=== PATIENT | female | born 1955 | race African-American/Black ===

== ENCOUNTER 2020-02-01 14:38 | Inpatient (IN) ==
[2020-02-01 15:59] LABS: Basophils # 0.1 K/mcL (0.0-0.2); Basophils % 0.5 %; Eosinophils # 0.6 K/mcL (0.0-0.6); Eosinophils % 6.1 %; Hematocrit 34.9 % (35.3-44.9); Hemoglobin 11.4 g/dL (11.5-15.4); Immature Granulocytes % 0.2 % (0-4); Lymphocytes # 5.6 K/mcL (0.6-4.6); Lymphocytes % 56.4 %; Mean Corpuscular HGB Conc 32.7 g/dL (31.6-35.5); Mean Corpuscular Hemoglobin 30.6 pg (28.0-33.3); Mean Corpuscular Volume 93.8 fL (83.0-100.0); Mean Platelet Volume 9.1 fL (9.4-12.4); Monocytes # 0.6 K/mcL (0.0-1.3); Monocytes % 5.9 %; Neutrophils # 3.1 K/mcL (1.6-8.9); Platelet Count 493 K/mcL (140-400); Red Blood Count 3.72 M/mcL (3.82-4.97); Red Cell Distribution Width 13.2 % (11.5-14.5); Segmented Neutrophils % 30.9 %; White Blood Count 9.9 K/mcL (4.3-11.1)
[2020-02-01 16:01] LABS: Prothrombin Time 11.5 Seconds (9.4-12.1)
[2020-02-01 16:04] LABS: Activated Partial Thrombo Time 27.9 Seconds (26.0-36.0)
[2020-02-01 16:09] LABS: Alanine Aminotransferase 16 Units/L (7-52); Albumin/Globulin Ratio 1.3 (1.1-2.2); Alkaline Phosphatase 52 Units/L (34-104); Aspartate Amino Transferase 21 Units/L (13-39); BUN/Creatinine Ratio 19 (6-26); Bilirubin,Indirect 0.5 mg/dL (0.0-1.0); Bilirubin,Total 0.5 mg/dL (0.3-1.0); Blood Urea Nitrogen 13 mg/dL (8-23); Calcium 9.2 mg/dL (8.6-10.3); Carbon Dioxide 23 mEq/L (23-29); Chloride 107 mEq/L (98-107); Globulin 3.2 g/dL (2.4-3.5); Glucose 134 mg/dL (70-105); Osmolality,Calculated 290 (280-300); Potassium 3.7 mEq/L (3.5-5.1); Sodium 139 mEq/L (136-145); Total Protein 7.2 g/dL (6.4-8.9); Troponin I < 0.03 ng/mL (< 0.04); eGFR For African Americans > 60 (> 60); eGFR For Non-African Americans > 60 (> 60)
[2020-02-01 16:29] LABS: Platelet Estimate Normal (Normal); Reactive Lymphocytes Present (Not Present)
[2020-02-01 17:37] LABS: Adenovirus Not Detected (Not Detect); Bordetella Pertussis Not Detected (Not Detect); Chlamydophila pneumoniae Not Detected (Not Detect); Coronavirus 229E Not Detected (Not Detect); Coronavirus HKU1 Not Detected (Not Detect); Coronavirus NL63 Not Detected (Not Detect); Coronavirus OC43 Not Detected (Not Detect); Human Metapneumovirus Not Detected (Not Detect); Human Rhinovirus/Enterovirus Not Detected (Not Detect); Influenza A Subtype 2009 H1 Not Detected (Not Detect); Influenza B Not Detected (Not Detect); Mycoplasma pneumoniae Not Detected (Not Detect); Parainfluenza Virus 1 Not Detected (Not Detect); Parainfluenza Virus 2 Not Detected (Not Detect); Parainfluenza Virus 3 Not Detected (Not Detect); Parainfluenza Virus 4 Not Detected (Not Detect); Respiratory Syncytial Virus Not Detected (Not Detect); SARS-CoV-2 Not Detected (Not Detect)
[2020-02-01] MEDS ORDERED: Naloxone 0.4 MG/ML INJ IVP PRN (21:50)
[2020-02-01] MEDS ORDERED: Ondansetron 4 MG/2 ML VIAL IVP PRN (21:50)
[2020-02-01] MEDS: *HR* Heparin 5,000 UNIT/ML VIAL SQ SCH (22:24)
[2020-02-02] MEDS: *HR* Heparin 5,000 UNIT/ML VIAL SQ SCH ×3 (05:40→21:07)
[2020-02-02] MEDS: Aspirin Enteric Coated 81 MG Tablet PO SCH (08:11)
[2020-02-02 10:47] LABS: Prothrombin Time 11.3 Seconds (9.4-12.1)
[2020-02-02 10:50] LABS: BUN/Creatinine Ratio 18 (6-26); Blood Urea Nitrogen 13 mg/dL (8-23); Calcium 9.3 mg/dL (8.6-10.3); Carbon Dioxide 22 mEq/L (23-29); Chloride 107 mEq/L (98-107); Glucose 85 mg/dL (70-105); Osmolality,Calculated 287 (280-300); Potassium 4.1 mEq/L (3.5-5.1); Sodium 139 mEq/L (136-145); eGFR For African Americans > 60 (> 60); eGFR For Non-African Americans > 60 (> 60)
[2020-02-02 10:52] LABS: % Iron Saturation 18 % (15-50); Iron 66 mcg/dL (50-170); Transferrin 263 mg/dL (203-362)
[2020-02-02] MEDS: Acetaminophen 325 MG TABLET PO PRN (10:59)
[2020-02-02 11:09] LABS: Ferritin 164 ng/mL (10-120)
[2020-02-02 11:31] LABS: Folate > 22.3 ng/mL (3.0-16.0); Vitamin B12 351 pg/mL (250-1100)
[2020-02-03] MEDS: *HR* Heparin 5,000 UNIT/ML VIAL SQ SCH ×3 (05:08→19:51)
[2020-02-03] MEDS: Aspirin Enteric Coated 81 MG Tablet PO SCH (08:39)
[2020-02-03] MEDS: amLODIPine 5 MG TABLET PO SCH (08:39)
[2020-02-03] MEDS: Acetaminophen 325 MG TABLET PO PRN (13:11)
[2020-02-04] MEDS: Acetaminophen 325 MG TABLET PO PRN ×3 (01:25→19:58)
[2020-02-04] MEDS: *HR* Heparin 5,000 UNIT/ML VIAL SQ SCH ×3 (03:43→19:55)
[2020-02-04 07:46] LABS: Hematocrit 37.4 % (35.3-44.9); Hemoglobin 12.2 g/dL (11.5-15.4); Mean Corpuscular HGB Conc 32.6 g/dL (31.6-35.5); Mean Corpuscular Hemoglobin 30.4 pg (28.0-33.3); Mean Corpuscular Volume 93.3 fL (83.0-100.0); Mean Platelet Volume 9.3 fL (9.4-12.4); Platelet Count 535 K/mcL (140-400); Red Blood Count 4.01 M/mcL (3.82-4.97); White Blood Count 9.4 K/mcL (4.3-11.1)
[2020-02-04 07:59] LABS: BUN/Creatinine Ratio 26 (6-26); Blood Urea Nitrogen 20 mg/dL (8-23); Calcium 9.6 mg/dL (8.6-10.3); Carbon Dioxide 22 mEq/L (23-29); Chloride 110 mEq/L (98-107); Glucose 99 mg/dL (70-105); Osmolality,Calculated 291 (280-300); Potassium 4.2 mEq/L (3.5-5.1); Sodium 139 mEq/L (136-145); eGFR For African Americans > 60 (> 60); eGFR For Non-African Americans > 60 (> 60)
[2020-02-04] MEDS: Aspirin Enteric Coated 81 MG Tablet PO SCH (08:02)
[2020-02-04] MEDS: amLODIPine 5 MG TABLET PO SCH (08:03)
[2020-02-04] MEDS ORDERED: *HR* Midazolam HCl 2 MG/2 ML VIAL ONE (08:17)
[2020-02-04] MEDS ORDERED: Heparin 1,000 UNITS/500 mL 500 ML ONE (08:17)
[2020-02-04] MEDS ORDERED: ISOVUE-370 200 ML INFUS..BTL ONE (08:17)
[2020-02-04] MEDS ORDERED: *HR* Heparin 10,000 UNIT/10 ML VIAL ONE (08:17)
[2020-02-04] MEDS ORDERED: 0.9 % Sodium Chloride 1,000 ML ONE ×2 (08:17→08:27)
[2020-02-04] MEDS ORDERED: Nitroglycerin 1,000 MCG/10 ML VIAL IV ONE (08:17)
[2020-02-04] MEDS ORDERED: *HR* Atropine Sulfate 1 MG/10 ML SYRINGE ONE (08:50)
[2020-02-04] MEDS: Isosorbide MONOnitrate (24 HR) 30 MG TAB.ER.24H PO SCH (11:53)
[2020-02-04 20:25] LABS: Estimated Average Glucose 105 mg/dl; Hemoglobin A1C 5.3 %
[2020-02-04 20:58] LABS: Chol/HDL Ratio 4.8 (0-4.9)
[2020-02-05] MEDS: *HR* Heparin 5,000 UNIT/ML VIAL SQ SCH ×3 (04:33→21:22)
[2020-02-05 05:38] LABS: BUN/Creatinine Ratio 24 (6-26); Blood Urea Nitrogen 19 mg/dL (8-23); Calcium 9.4 mg/dL (8.6-10.3); Carbon Dioxide 22 mEq/L (23-29); Chloride 107 mEq/L (98-107); Glucose 98 mg/dL (70-105); Osmolality,Calculated 286 (280-300); Sodium 137 mEq/L (136-145); eGFR For African Americans > 60 (> 60); eGFR For Non-African Americans > 60 (> 60)
[2020-02-05] MEDS: Isosorbide MONOnitrate (24 HR) 30 MG TAB.ER.24H PO SCH (08:57)
[2020-02-05] MEDS: Chlorhexidine Rinse 15 ML MOUTHWASH MM SCH ×2 (08:57→21:22)
[2020-02-05] MEDS: Aspirin Enteric Coated 81 MG Tablet PO SCH (08:57)
[2020-02-05] MEDS: amLODIPine 5 MG TABLET PO SCH (08:57)
[2020-02-05] MEDS: Acetaminophen 325 MG TABLET PO PRN ×2 (16:08→21:23)
[2020-02-06 03:11] LABS: Hematocrit 34.1 % (35.3-44.9); Hemoglobin 11.1 g/dL (11.5-15.4); Mean Corpuscular HGB Conc 32.6 g/dL (31.6-35.5); Mean Corpuscular Hemoglobin 30.2 pg (28.0-33.3); Mean Corpuscular Volume 92.9 fL (83.0-100.0); Platelet Count 474 K/mcL (140-400); Red Blood Count 3.67 M/mcL (3.82-4.97); Red Cell Distribution Width 13.2 % (11.5-14.5)
[2020-02-06 03:29] LABS: BUN/Creatinine Ratio 23 (6-26); Blood Urea Nitrogen 17 mg/dL (8-23); Calcium 9.3 mg/dL (8.6-10.3); Carbon Dioxide 24 mEq/L (23-29); Chloride 109 mEq/L (98-107); Glucose 95 mg/dL (70-105); Osmolality,Calculated 293 (280-300); Potassium 3.8 mEq/L (3.5-5.1); Sodium 141 mEq/L (136-145); eGFR For African Americans > 60 (> 60); eGFR For Non-African Americans > 60 (> 60)
[2020-02-06] MEDS: *HR* Heparin 5,000 UNIT/ML VIAL SQ SCH ×3 (05:54→22:02)
[2020-02-06] MEDS ORDERED: Aspirin 81 MG TAB.CHEW PO ONE (06:00)
[2020-02-06] MEDS ORDERED: *HR* Midazolam HCl 5 MG/5 ML VIAL IVP ONE (06:53)
[2020-02-06] MEDS ORDERED: *HR* FentaNYL (PF) 1,000 MCG/20 ML VIAL ONE (06:53)
[2020-02-06] MEDS ORDERED: *HR* Propofol 200 MG/20 ML VIAL IVP ONE (06:53)
[2020-02-06] MEDS ORDERED: Tranexamic Acid 1,000 MG/10 ML VIAL ONE (06:56)
[2020-02-06] MEDS ORDERED: Famotidine 20 MG/2 ML VIAL ONE (06:58)
[2020-02-06] MEDS ORDERED: *HR* Rocuronium Bromide 50 MG/5 ML VIAL ONE ×2 (06:58→09:07)
[2020-02-06] MEDS ORDERED: *HR* PHENYLEPHRINE 1,000 MCG/10 ML SYRINGE IVP ONE (06:58)
[2020-02-06] MEDS ORDERED: Dexamethasone 4 MG/ML VIAL ONE (06:58)
[2020-02-06] MEDS ORDERED: *HR* Magnesium Sulfate 1 GM/2 ML VIAL ONE (06:58)
[2020-02-06] MEDS ORDERED: Lidocaine 2% Syringe 100 MG/5 ML ONE (06:59)
[2020-02-06] MEDS ORDERED: CeFAZolin Syr 2,000MG/20 ML 2,000 MG/20 ML SYRINGE IVPB ONE (07:00)
[2020-02-06] MEDS ORDERED: Norepinephrine 4 MG in 0.9 % Sodium Chloride 250 ML IVC PRN (07:45)
[2020-02-06] MEDS ORDERED: Insulin Human Regular 100 UNIT in 0.9 % Sodium Chloride 100 ML IV PRN (07:45)
[2020-02-06] MEDS ORDERED: Dextrose 50 % in Water (Vial) 30 ML, Sodium Bicarbonate 20 MEQ, Lidocaine 1% 5 ML, Insu... TH ONE ×3 (07:45)
[2020-02-06] MEDS ORDERED: Heparin 15,000 UNIT in 0.9 % Sodium Chloride 500 ML IV ONE (07:45)
[2020-02-06] MEDS ORDERED: Dextrose 50 % in Water (Vial) 30 ML, Sodium Bicarbonate 20 MEQ, Potassium Chloride 15 M... TH ONE (07:45)
[2020-02-06] MEDS ORDERED: Vancomycin 1,000 MG VIAL ONE (08:08)
[2020-02-06 08:38] LABS: ABG Base Excess -2 mEq/L (-2 to 3); ABG Chloride 108 mEq/L (98-107); ABG Glucose 103 mg/dL (60-95); ABG HCO3 26 mEq/L (21-27); ABG Ionized Calcium 1.28 mmol/L (1.15-1.35); ABG Oxygen Saturation 100 % (95-98); ABG PCO2 55 mmHg (35-45); ABG PH 7.28 pH Units (7.32-7.45); ABG PO2 188 mmHg (85-104); ABG TCO2 27 mEq/L (20-26)
[2020-02-06] MEDS ORDERED: Papaverine 60 MG/2 ML VIAL IVP ONE (09:51)
[2020-02-06] MEDS ORDERED: niCARdipine 20 MG/200 ML MLS IVC ONE (10:05)
[2020-02-06] MEDS ORDERED: Albumin Human 5% 12.5 GM/250 ML IV.SOLN ONE ×2 (10:06→11:07)
[2020-02-06 10:24] LABS: ABG Base Excess -2 mEq/L (-2 to 3); ABG Chloride 103 mEq/L (98-107); ABG Glucose 145 mg/dL (60-95); ABG HCO3 23 mEq/L (21-27); ABG Ionized Calcium 1.05 mmol/L (1.15-1.35); ABG Oxygen Saturation 100 % (95-98); ABG PCO2 39 mmHg (35-45); ABG PH 7.38 pH Units (7.32-7.45); ABG PO2 478 mmHg (85-104); ABG TCO2 24 mEq/L (20-26)
[2020-02-06] MEDS ORDERED: Protamine Sulfate 250 MG/25 ML VIAL IVP ONE (10:47)
[2020-02-06] MEDS ORDERED: Calcium Gluconate 1,000 MG/10 ML VIAL ONE (10:47)
[2020-02-06 11:13] LABS: ABG Base Excess -2 mEq/L (-2 to 3); ABG Chloride 101 mEq/L (98-107); ABG Glucose 116 mg/dL (60-95); ABG HCO3 24 mEq/L (21-27); ABG Ionized Calcium 1.06 mmol/L (1.15-1.35); ABG Oxygen Saturation 100 % (95-98); ABG PCO2 43 mmHg (35-45); ABG PH 7.35 pH Units (7.32-7.45); ABG PO2 587 mmHg (85-104); ABG TCO2 25 mEq/L (20-26)
[2020-02-06 11:24] LABS: ABG Base Excess -2 mEq/L (-2 to 3); ABG Chloride 102 mEq/L (98-107); ABG Glucose 86 mg/dL (60-95); ABG HCO3 24 mEq/L (21-27); ABG Ionized Calcium 1.09 mmol/L (1.15-1.35); ABG Oxygen Saturation 100 % (95-98); ABG PCO2 46 mmHg (35-45); ABG PH 7.33 pH Units (7.32-7.45); ABG PO2 603 mmHg (85-104); ABG TCO2 26 mEq/L (20-26)
[2020-02-06 11:43] LABS: ABG Base Excess -4 mEq/L (-2 to 3); ABG Chloride 110 mEq/L (98-107); ABG Glucose 70 mg/dL (60-95); ABG HCO3 21 mEq/L (21-27); ABG Oxygen Saturation 100 % (95-98); ABG PCO2 32 mmHg (35-45); ABG PH 7.41 pH Units (7.32-7.45); ABG PO2 198 mmHg (85-104); ABG TCO2 22 mEq/L (20-26)
[2020-02-06] MEDS ORDERED: Ondansetron 4 MG/2 ML VIAL ONE (11:47)
[2020-02-06] MEDS ORDERED: *HR* Dextrose 50 % in Water (Vial) 50 ML VIAL IVP PRN (11:48)
[2020-02-06] MEDS ORDERED: Insulin Regular, Human 100 UNIT/ML IV PRN (11:48)
[2020-02-06] MEDS ORDERED: Potassium Chloride 40 MEQ/200 ML BAG IVPB PRN (11:48)
[2020-02-06] MEDS ORDERED: Albumin Human 5% 12.5 GM/250 ML IV.SOLN IVPB PRN (11:49)
[2020-02-06] MEDS ORDERED: Acetaminophen 650 MG RECTAL SUPP RC PRN (11:49)
[2020-02-06] MEDS ORDERED: Calcium Gluconate 1gm/50mL 1 GM/50 ML BAG IVPB PRN (11:49)
[2020-02-06 11:59] LABS: ABG Base Excess -2 mEq/L (-2 to 3); ABG Chloride 108 mEq/L (98-107); ABG Glucose 68 mg/dL (60-95); ABG HCO3 22 mEq/L (21-27); ABG Ionized Calcium 1.03 mmol/L (1.15-1.35); ABG Oxygen Saturation 100 % (95-98); ABG PCO2 34 mmHg (35-45); ABG PH 7.41 pH Units (7.32-7.45); ABG PO2 189 mmHg (85-104); ABG TCO2 23 mEq/L (20-26)
[2020-02-06] MEDS ORDERED: 0.9 % Sodium Chloride w KCl 20 MEQ/1,000 ML MLS IVC SCH (12:00)
[2020-02-06 12:37] LABS: ABG Base Excess -1 mEq/L (-2 to 3); ABG HCO3 23 mEq/L (21-27); ABG Oxygen Saturation 99 % (95-98); ABG PCO2 32 mmHg (35-45); ABG PH 7.46 pH Units (7.32-7.45); ABG PO2 148 mmHg (85-104); ABG TCO2 24 mEq/L (20-26); Blood Gas Modality ASSIST CONTROL; Blood Gas VT 500 cc
[2020-02-06] MEDS: amLODIPine 5 MG TABLET PO SCH (12:38)
[2020-02-06] MEDS: niCARdipine 20 MG/200 ML MLS IVC SCH ×3 (12:38→19:33)
[2020-02-06] MEDS: Metoclopramide 10 MG/2 ML VIAL IVP SCH ×3 (12:40→23:58)
[2020-02-06 12:46] LABS: Basophils # 0.1 K/mcL (0.0-0.2); Basophils % 0.3 %; Eosinophils # 0.2 K/mcL (0.0-0.6); Eosinophils % 0.9 %; Hematocrit 28.2 % (35.3-44.9); Immature Granulocytes % 0.9 % (0-4); Lymphocytes # 3.8 K/mcL (0.6-4.6); Lymphocytes % 19.4 %; Mean Corpuscular HGB Conc 33.7 g/dL (31.6-35.5); Mean Corpuscular Hemoglobin 30.2 pg (28.0-33.3); Mean Corpuscular Volume 89.5 fL (83.0-100.0); Monocytes % 4.9 %; Neutrophils # 14.5 K/mcL (1.6-8.9); Platelet Count 205 K/mcL (140-400); Red Blood Count 3.15 M/mcL (3.82-4.97); Red Cell Distribution Width 13.1 % (11.5-14.5); Segmented Neutrophils % 73.6 %
[2020-02-06 12:47] LABS: Hemoglobin 9.5 g/dL (11.5-15.4); White Blood Count 19.7 K/mcL (4.3-11.1)
[2020-02-06 12:56] LABS: INR 1.2; Prothrombin Time 14.2 Seconds (9.4-12.1)
[2020-02-06 12:59] LABS: Activated Partial Thrombo Time 26.7 Seconds (26.0-36.0)
[2020-02-06 13:01] LABS: BUN/Creatinine Ratio 19 (6-26); Blood Urea Nitrogen 15 mg/dL (8-23); Calcium 8.3 mg/dL (8.6-10.3); Carbon Dioxide 22 mEq/L (23-29); Chloride 110 mEq/L (98-107); Glucose 115 mg/dL (70-105); Magnesium 3.5 mg/dL (1.6-2.6); Osmolality,Calculated 290 (280-300); Potassium 4.5 mEq/L (3.5-5.1); Sodium 139 mEq/L (136-145); eGFR For African Americans > 60 (> 60); eGFR For Non-African Americans > 60 (> 60)
[2020-02-06] MEDS: Insulin Human Regular 100 UNIT in 0.9 % Sodium Chloride 100 ML IVC SCH (13:14)
[2020-02-06] MEDS: *HR* FentaNYL (PF) 100 MCG/2 ML VIAL IVP PRN ×3 (13:47→19:33)
[2020-02-06] MEDS: Pantoprazole 40 MG VIAL IVP SCH (13:51)
[2020-02-06] MEDS: Norepinephrine 4 MG/254 ML IV.SOLN IVC SCH (15:30)
[2020-02-06] MEDS: CeFAZolin 2 GM/120 ML BAG IVPB SCH ×2 (15:47→23:58)
[2020-02-06] MEDS: *HR* OxyCODONE/APAP 5/325 TABLET PO PRN (15:47)
[2020-02-06 16:57] LABS: ABG Base Excess -1 mEq/L (-2 to 3); ABG HCO3 27 mEq/L (21-27); ABG Oxygen Saturation 97 % (95-98); ABG PCO2 58 mmHg (35-45); ABG PH 7.28 pH Units (7.32-7.45); ABG PO2 102 mmHg (85-104); ABG TCO2 29 mEq/L (20-26); Blood Gas Modality CPAP/PS; Blood Gas Pressure Support 10 cm H2O
[2020-02-06 18:30] LABS: ABG Base Excess -1 mEq/L (-2 to 3); ABG HCO3 25 mEq/L (21-27); ABG Oxygen Saturation 98 % (95-98); ABG PCO2 49 mmHg (35-45); ABG PH 7.32 pH Units (7.32-7.45); ABG PO2 124 mmHg (85-104); ABG TCO2 27 mEq/L (20-26); Blood Gas Modality ASSIST CONTROL; Blood Gas VT 500 cc
[2020-02-06] MEDS: Chlorhexidine Rinse 15 ML MOUTHWASH MM SCH (19:33)
[2020-02-06 20:07] LABS: ABG Base Excess -2 mEq/L (-2 to 3); ABG HCO3 26 mEq/L (21-27); ABG Oxygen Saturation 97 % (95-98); ABG PCO2 64 mmHg (35-45); ABG PH 7.23 pH Units (7.32-7.45); ABG PO2 107 mmHg (85-104); ABG TCO2 28 mEq/L (20-26)
[2020-02-06 22:20] LABS: ABG Base Excess -3 mEq/L (-2 to 3); ABG HCO3 25 mEq/L (21-27); ABG Oxygen Saturation 92 % (95-98); ABG PCO2 58 mmHg (35-45); ABG PH 7.24 pH Units (7.32-7.45); ABG PO2 76 mmHg (85-104); ABG TCO2 26 mEq/L (20-26)
[2020-02-06 23:54] LABS: ABG Base Excess -3 mEq/L (-2 to 3); ABG HCO3 24 mEq/L (21-27); ABG Oxygen Saturation 96 % (95-98); ABG PCO2 48 mmHg (35-45); ABG PH 7.31 pH Units (7.32-7.45); ABG PO2 90 mmHg (85-104); ABG TCO2 25 mEq/L (20-26)
[2020-02-07] MEDS: niCARdipine 20 MG/200 ML MLS IVC SCH ×7 (00:13→23:11)
[2020-02-07] MEDS: *HR* OxyCODONE/APAP 5/325 TABLET PO PRN ×4 (01:04→18:39)
[2020-02-07] MEDS: *HR* Heparin 5,000 UNIT/ML VIAL SQ SCH ×3 (04:01→16:48)
[2020-02-07 04:08] LABS: Basophils % 0.1 %; Hematocrit 27.7 % (35.3-44.9); Hemoglobin 8.9 g/dL (11.5-15.4); Immature Granulocytes % 0.5 % (0-4); Lymphocytes # 2.7 K/mcL (0.6-4.6); Lymphocytes % 15.7 %; Mean Corpuscular HGB Conc 32.1 g/dL (31.6-35.5); Mean Corpuscular Hemoglobin 29.7 pg (28.0-33.3); Mean Corpuscular Volume 92.3 fL (83.0-100.0); Monocytes # 1.3 K/mcL (0.0-1.3); Monocytes % 7.7 %; Platelet Count 201 K/mcL (140-400); Red Cell Distribution Width 13.7 % (11.5-14.5); White Blood Count 17.1 K/mcL (4.3-11.1)
[2020-02-07 04:26] LABS: BUN/Creatinine Ratio 26 (6-26); Blood Urea Nitrogen 19 mg/dL (8-23); Calcium 7.5 mg/dL (8.6-10.3); Carbon Dioxide 21 mEq/L (23-29); Chloride 112 mEq/L (98-107); Glucose 147 mg/dL (70-105); Magnesium 2.5 mg/dL (1.6-2.6); Osmolality,Calculated 297 (280-300); Potassium 4.7 mEq/L (3.5-5.1); Sodium 141 mEq/L (136-145); eGFR For African Americans > 60 (> 60); eGFR For Non-African Americans > 60 (> 60)
[2020-02-07] MEDS: Metoclopramide 10 MG/2 ML VIAL IVP SCH ×4 (05:02→23:13)
[2020-02-07 05:19] LABS: ABG Base Excess -2 mEq/L (-2 to 3); ABG HCO3 24 mEq/L (21-27); ABG Oxygen Saturation 97 % (95-98); ABG PCO2 45 mmHg (35-45); ABG PH 7.34 pH Units (7.32-7.45); ABG PO2 100 mmHg (85-104); ABG TCO2 26 mEq/L (20-26)
[2020-02-07] MEDS ORDERED: *HR* Dextrose 50 % in Water (Vial) 50 ML VIAL IVP PRN (07:50)
[2020-02-07] MEDS ORDERED: Dextrose Gel 15 GM/37.5 ML TUBE PO PRN ×2 (07:50)
[2020-02-07] MEDS ORDERED: D5% in Water 1,000 ML IVC PRN (07:50)
[2020-02-07] MEDS: Furosemide 20 MG/2 ML VIAL IVP SCH ×2 (08:24→19:58)
[2020-02-07] MEDS: Pantoprazole 40 MG VIAL IVP SCH (08:24)
[2020-02-07] MEDS: Chlorhexidine Rinse 15 ML MOUTHWASH MM SCH ×2 (08:24→19:58)
[2020-02-07] MEDS: Aspirin Enteric Coated 81 MG Tablet PO SCH (08:24)
[2020-02-07] MEDS ORDERED: *HR* FentaNYL (PF) 100 MCG/2 ML VIAL IVP PRN (11:49)
[2020-02-07] MEDS: Insulin LISPRO 300 UNITS/3 ML VIAL SUBQ SCH ×2 (12:58→16:48)
[2020-02-07] MEDS: Norepinephrine 4 MG/254 ML IV.SOLN IVC SCH (12:59)
[2020-02-07] MEDS: Insulin Human Regular 100 UNIT in 0.9 % Sodium Chloride 100 ML IVC SCH (13:00)
[2020-02-07] MEDS ORDERED: Insulin LISPRO 300 UNITS/3 ML VIAL SUBQ SCH (21:00)
[2020-02-08] MEDS: *HR* OxyCODONE/APAP 5/325 TABLET PO PRN (00:52)
[2020-02-08 04:31] LABS: Basophils % 0.1 %; Eosinophils % 0.1 %; Hematocrit 25.4 % (35.3-44.9); Hemoglobin 8.2 g/dL (11.5-15.4); Immature Granulocytes % 0.3 % (0-4); Lymphocytes # 5.2 K/mcL (0.6-4.6); Lymphocytes % 28.4 %; Mean Corpuscular HGB Conc 32.3 g/dL (31.6-35.5); Mean Corpuscular Hemoglobin 30.7 pg (28.0-33.3); Mean Corpuscular Volume 95.1 fL (83.0-100.0); Mean Platelet Volume 9.4 fL (9.4-12.4); Monocytes # 1.4 K/mcL (0.0-1.3); Monocytes % 7.8 %; Neutrophils # 11.6 K/mcL (1.6-8.9); Platelet Count 214 K/mcL (140-400); Red Blood Count 2.67 M/mcL (3.82-4.97); Segmented Neutrophils % 63.3 %; White Blood Count 18.3 K/mcL (4.3-11.1)
[2020-02-08 04:47] LABS: BUN/Creatinine Ratio 35 (6-26); Blood Urea Nitrogen 24 mg/dL (8-23); Calcium 7.7 mg/dL (8.6-10.3); Carbon Dioxide 26 mEq/L (23-29); Chloride 108 mEq/L (98-107); Glucose 147 mg/dL (70-105); Osmolality,Calculated 295 (280-300); Potassium 4.4 mEq/L (3.5-5.1); Sodium 139 mEq/L (136-145); eGFR For African Americans > 60 (> 60); eGFR For Non-African Americans > 60 (> 60)
[2020-02-08] MEDS: niCARdipine 20 MG/200 ML MLS IVC SCH (06:10)
[2020-02-08] MEDS: *HR* Heparin 5,000 UNIT/ML VIAL SQ SCH ×2 (06:11→17:32)
[2020-02-08] MEDS: Metoclopramide 10 MG/2 ML VIAL IVP SCH ×3 (06:11→17:31)
[2020-02-08] MEDS: Insulin LISPRO 300 UNITS/3 ML VIAL SUBQ SCH ×4 (07:40→20:14)
[2020-02-08] MEDS: Furosemide 20 MG/2 ML VIAL IVP SCH ×2 (08:11→20:15)
[2020-02-08] MEDS: Aspirin Enteric Coated 81 MG Tablet PO SCH (08:11)
[2020-02-08] MEDS: Chlorhexidine Rinse 15 ML MOUTHWASH MM SCH ×2 (08:11→20:15)
[2020-02-08] MEDS ORDERED: amLODIPine 5 MG TABLET PO SCH (09:00)
[2020-02-08] MEDS: Acetaminophen 325 MG TABLET PO PRN (11:58)
[2020-02-08] MEDS ORDERED: Dextrose Gel 15 GM/37.5 ML TUBE PO PRN ×2 (14:22)
[2020-02-08] MEDS ORDERED: *HR* Dextrose 50 % in Water (Vial) 50 ML VIAL IVP PRN (14:22)
[2020-02-08] MEDS ORDERED: Naloxone 0.4 MG/ML INJ IVP PRN (14:22)
[2020-02-08] MEDS ORDERED: Ondansetron 4 MG/2 ML VIAL IVP PRN (14:22)
[2020-02-08] MEDS ORDERED: D5% in Water 1,000 ML IVC PRN (14:22)
[2020-02-09] MEDS: Metoclopramide 10 MG/2 ML VIAL IVP SCH ×3 (01:13→11:45)
[2020-02-09] MEDS: *HR* Heparin 5,000 UNIT/ML VIAL SQ SCH ×2 (05:57→16:44)
[2020-02-09] MEDS: Insulin LISPRO 300 UNITS/3 ML VIAL SUBQ SCH ×4 (07:35→20:36)
[2020-02-09] MEDS: Furosemide 20 MG/2 ML VIAL IVP SCH ×2 (08:03→20:35)
[2020-02-09] MEDS: amLODIPine 5 MG TABLET PO SCH (08:03)
[2020-02-09] MEDS: Chlorhexidine Rinse 15 ML MOUTHWASH MM SCH ×2 (08:03→20:35)
[2020-02-09] MEDS: Aspirin Enteric Coated 81 MG Tablet PO SCH (08:03)
[2020-02-09] MEDS: Acetaminophen 325 MG TABLET PO PRN (16:44)
[2020-02-10 05:01] LABS: Basophils % 0.2 %; Eosinophils # 0.1 K/mcL (0.0-0.6); Eosinophils % 0.6 %; Hematocrit 25.4 % (35.3-44.9); Hemoglobin 8.5 g/dL (11.5-15.4); Immature Granulocytes % 0.8 % (0-4); Lymphocytes # 4.9 K/mcL (0.6-4.6); Lymphocytes % 25.4 %; Mean Corpuscular HGB Conc 33.5 g/dL (31.6-35.5); Mean Corpuscular Hemoglobin 30.8 pg (28.0-33.3); Mean Platelet Volume 9.5 fL (9.4-12.4); Monocytes # 1.4 K/mcL (0.0-1.3); Monocytes % 7.3 %; Neutrophils # 12.7 K/mcL (1.6-8.9); Nucleated Red Blood Cells 0.2 /100 WBC (0); Platelet Count 432 K/mcL (140-400); Red Blood Count 2.76 M/mcL (3.82-4.97); Red Cell Distribution Width 13.6 % (11.5-14.5); Segmented Neutrophils % 65.7 %; White Blood Count 19.3 K/mcL (4.3-11.1)
[2020-02-10] MEDS: *HR* Heparin 5,000 UNIT/ML VIAL SQ SCH ×2 (06:17→17:50)
[2020-02-10] MEDS: Insulin LISPRO 300 UNITS/3 ML VIAL SUBQ SCH ×4 (09:09→20:31)
[2020-02-10] MEDS: amLODIPine 5 MG TABLET PO SCH (09:14)
[2020-02-10] MEDS: Aspirin Enteric Coated 81 MG Tablet PO SCH (09:14)
[2020-02-10] MEDS: Chlorhexidine Rinse 15 ML MOUTHWASH MM SCH ×2 (09:14→20:29)
[2020-02-10] MEDS: Acetaminophen 325 MG TABLET PO PRN (12:28)
[2020-02-10 20:10] LABS: Bilirubin,Urine Negative (Negative); Blood,Urine Trace (Negative); Clarity,Urine Clear (Clear); Color,Urine Yellow (Yellow); Glucose,Urine (UA) Normal (Normal); Ketones,Urine Negative (Negative); Leukocyte Esterase,Urine Negative (Negative); Mucus,Urine Few per lpf (None-Few); Nitrite,Urine Negative (Negative); Protein,Urine 50 mg/dL (Neg-Trace); RBC,Urine 0-3 per hpf (0-3); Specific Gravity,Urine 1.022 (1.010-1.025); Squamous Epithelial Cell,Urine Few per hpf (None-Few); Urobilinogen,Urine Normal (Normal); WBC,Urine 0-3 per hpf (0-3)
[2020-02-10] MEDS: *HR* OxyCODONE/APAP 5/325 TABLET PO PRN (22:26)
[2020-02-11 04:52] LABS: Basophils # 0.1 K/mcL (0.0-0.2); Basophils % 0.3 %; Eosinophils # 0.6 K/mcL (0.0-0.6); Hematocrit 26.8 % (35.3-44.9); Hemoglobin 8.4 g/dL (11.5-15.4); Immature Granulocytes % 1.1 % (0-4); Lymphocytes # 6.7 K/mcL (0.6-4.6); Lymphocytes % 35.6 %; Mean Corpuscular HGB Conc 31.3 g/dL (31.6-35.5); Mean Corpuscular Hemoglobin 29.2 pg (28.0-33.3); Mean Corpuscular Volume 93.1 fL (83.0-100.0); Mean Platelet Volume 9.3 fL (9.4-12.4); Monocytes # 1.5 K/mcL (0.0-1.3); Monocytes % 7.7 %; Neutrophils # 9.9 K/mcL (1.6-8.9); Nucleated Red Blood Cells 0.3 /100 WBC (0); Platelet Count 540 K/mcL (140-400); Red Blood Count 2.88 M/mcL (3.82-4.97); Red Cell Distribution Width 13.5 % (11.5-14.5); Segmented Neutrophils % 52.3 %; White Blood Count 18.9 K/mcL (4.3-11.1)
[2020-02-11 05:36] LABS: Platelet Estimate Increased (Normal); Reactive Lymphocytes Present (Not Present)
[2020-02-11] MEDS: *HR* OxyCODONE/APAP 5/325 TABLET PO PRN ×4 (06:36→23:36)
[2020-02-11] MEDS: *HR* Heparin 5,000 UNIT/ML VIAL SQ SCH ×2 (06:37→17:48)
[2020-02-11] MEDS: Insulin LISPRO 300 UNITS/3 ML VIAL SUBQ SCH ×4 (07:20→20:28)
[2020-02-11] MEDS: Aspirin Enteric Coated 81 MG Tablet PO SCH (07:32)
[2020-02-11] MEDS: amLODIPine 5 MG TABLET PO SCH (07:33)
[2020-02-11] MEDS: Chlorhexidine Rinse 15 ML MOUTHWASH MM SCH ×2 (07:34→20:40)
[2020-02-11] MEDS ORDERED: Vancomycin 1,500 MG/265 ML IV.SOLN IVPB ONE (12:55)
[2020-02-11] MEDS ORDERED: Vancomycin 1 EACH in 0.9 % Sodium Chloride 250 ML IVPB SCH (13:00)
[2020-02-11 13:40] LABS: eGFR For African Americans > 60 (> 60); eGFR For Non-African Americans > 60 (> 60)
[2020-02-11 14:19] LABS: Blood Urea Nitrogen 21 mg/dL (8-23)
[2020-02-11] MEDS: levoFLOXacin 750 MG/150 ML 750 MG/150 ML BAG IVPB SCH (15:42)
[2020-02-11] MEDS ORDERED: Piperacillin/Tazobactam 3.375 GM in 0.9 % Sodium Chloride Mini Bag 100 ML IVPB SCH (16:00)
[2020-02-11] MEDS: Ipratropium/Albuterol Neb 3 ML IH SCH ×2 (16:54→21:49)
[2020-02-11] MEDS ORDERED: Isovue-370 500 ML BOTTLE PO ONE (17:16)
[2020-02-11] MEDS: Acetaminophen 325 MG TABLET PO PRN (20:40)
[2020-02-11] MEDS: Piperacillin/Tazobactam 3.375 GM in 0.9 % Sodium Chloride Mini Bag 100 ML IVPB SCH (20:40)
[2020-02-12] MEDS: Vancomycin 1,250 MG/262.5 ML IV.SOLN IVPB SCH ×2 (00:57→13:50)
[2020-02-12 03:20] LABS: Basophils # 0.1 K/mcL (0.0-0.2); Basophils % 0.3 %; Eosinophils # 0.7 K/mcL (0.0-0.6); Eosinophils % 4.4 %; Hematocrit 22.8 % (35.3-44.9); Hemoglobin 7.3 g/dL (11.5-15.4); Immature Granulocytes % 1.5 % (0-4); Lymphocytes # 5.4 K/mcL (0.6-4.6); Lymphocytes % 35.6 %; Mean Corpuscular Hemoglobin 29.8 pg (28.0-33.3); Mean Corpuscular Volume 93.1 fL (83.0-100.0); Mean Platelet Volume 9.6 fL (9.4-12.4); Monocytes # 1.2 K/mcL (0.0-1.3); Neutrophils # 7.6 K/mcL (1.6-8.9); Nucleated Red Blood Cells 0.2 /100 WBC (0); Platelet Count 623 K/mcL (140-400); Red Blood Count 2.45 M/mcL (3.82-4.97); Red Cell Distribution Width 13.5 % (11.5-14.5); Segmented Neutrophils % 50.2 %; White Blood Count 15.1 K/mcL (4.3-11.1)
[2020-02-12 03:26] LABS: BUN/Creatinine Ratio 22 (6-26); Blood Urea Nitrogen 13 mg/dL (8-23); Calcium 8.4 mg/dL (8.6-10.3); Carbon Dioxide 22 mEq/L (23-29); Chloride 105 mEq/L (98-107); Glucose 101 mg/dL (70-105); Osmolality,Calculated 286 (280-300); Potassium 3.3 mEq/L (3.5-5.1); Sodium 138 mEq/L (136-145); eGFR For African Americans > 60 (> 60); eGFR For Non-African Americans > 60 (> 60)
[2020-02-12] MEDS: Piperacillin/Tazobactam 3.375 GM in 0.9 % Sodium Chloride Mini Bag 100 ML IVPB SCH ×3 (03:34→22:22)
[2020-02-12] MEDS: Ipratropium/Albuterol Neb 3 ML IH SCH ×4 (03:49→21:35)
[2020-02-12] MEDS: *HR* Heparin 5,000 UNIT/ML VIAL SQ SCH ×2 (05:49→17:23)
[2020-02-12] MEDS: Insulin LISPRO 300 UNITS/3 ML VIAL SUBQ SCH ×4 (08:43→22:23)
[2020-02-12] MEDS: amLODIPine 5 MG TABLET PO SCH (08:53)
[2020-02-12] MEDS: Aspirin Enteric Coated 81 MG Tablet PO SCH (08:53)
[2020-02-12] MEDS: levoFLOXacin 750 MG/150 ML 750 MG/150 ML BAG IVPB SCH (08:56)
[2020-02-12] MEDS: Chlorhexidine Rinse 15 ML MOUTHWASH MM SCH ×2 (08:57→22:23)
[2020-02-12] MEDS: Acetaminophen 325 MG TABLET PO PRN ×3 (09:02→23:45)
[2020-02-13] MEDS: Vancomycin 1,250 MG/262.5 ML IV.SOLN IVPB SCH ×2 (01:26→12:27)
[2020-02-13 03:28] LABS: Basophils # 0.1 K/mcL (0.0-0.2); Basophils % 0.5 %; Eosinophils # 0.9 K/mcL (0.0-0.6); Hematocrit 26.6 % (35.3-44.9); Immature Granulocytes % 2.1 % (0-4); Lymphocytes # 5.3 K/mcL (0.6-4.6); Lymphocytes % 30.6 %; Mean Corpuscular HGB Conc 30.1 g/dL (31.6-35.5); Mean Corpuscular Volume 96.4 fL (83.0-100.0); Mean Platelet Volume 9.3 fL (9.4-12.4); Monocytes # 1.6 K/mcL (0.0-1.3); Monocytes % 9.2 %; Nucleated Red Blood Cells 0.2 /100 WBC (0); Platelet Count 789 K/mcL (140-400); Red Blood Count 2.76 M/mcL (3.82-4.97); Red Cell Distribution Width 13.7 % (11.5-14.5); Segmented Neutrophils % 52.6 %; White Blood Count 17.2 K/mcL (4.3-11.1)
[2020-02-13 03:39] LABS: BUN/Creatinine Ratio 18 (6-26); Blood Urea Nitrogen 12 mg/dL (8-23); Calcium 8.9 mg/dL (8.6-10.3); Carbon Dioxide 19 mEq/L (23-29); Chloride 110 mEq/L (98-107); Glucose 94 mg/dL (70-105); Osmolality,Calculated 288 (280-300); Potassium 3.9 mEq/L (3.5-5.1); Sodium 139 mEq/L (136-145); eGFR For African Americans > 60 (> 60); eGFR For Non-African Americans > 60 (> 60)
[2020-02-13] MEDS: Ipratropium/Albuterol Neb 3 ML IH SCH ×3 (03:55→16:18)
[2020-02-13] MEDS: Piperacillin/Tazobactam 3.375 GM in 0.9 % Sodium Chloride Mini Bag 100 ML IVPB SCH ×2 (05:13→12:27)
[2020-02-13] MEDS: *HR* Heparin 5,000 UNIT/ML VIAL SQ SCH (05:16)
[2020-02-13] MEDS: Acetaminophen 325 MG TABLET PO PRN (06:02)
[2020-02-13] MEDS ORDERED: MOM Conc 10 ML UD.LIQ PO PRN (07:13)
[2020-02-13] MEDS: Chlorhexidine Rinse 15 ML MOUTHWASH MM SCH (08:34)
[2020-02-13] MEDS: Insulin LISPRO 300 UNITS/3 ML VIAL SUBQ SCH ×2 (08:35→12:49)
[2020-02-13] MEDS: amLODIPine 5 MG TABLET PO SCH (08:35)
[2020-02-13] MEDS: Aspirin Enteric Coated 81 MG Tablet PO SCH (08:35)
[2020-02-13] MEDS: levoFLOXacin 750 MG/150 ML 750 MG/150 ML BAG IVPB SCH (08:35)
[2020-02-13] MEDS ORDERED: Ibuprofen 600 MG TABLET PO ONE (12:12)
[2020-02-13 14:34] LABS: Adenovirus Not Detected (Not Detect); Bordetella Pertussis Not Detected (Not Detect); Chlamydophila pneumoniae Not Detected (Not Detect); Coronavirus 229E Not Detected (Not Detect); Coronavirus HKU1 Not Detected (Not Detect); Coronavirus NL63 Not Detected (Not Detect); Coronavirus OC43 Not Detected (Not Detect); Human Metapneumovirus Not Detected (Not Detect); Human Rhinovirus/Enterovirus Not Detected (Not Detect); Influenza A Subtype 2009 H1 Not Detected (Not Detect); Influenza B Not Detected (Not Detect); Mycoplasma pneumoniae Not Detected (Not Detect); Parainfluenza Virus 1 Not Detected (Not Detect); Parainfluenza Virus 2 Not Detected (Not Detect); Parainfluenza Virus 3 Not Detected (Not Detect); Parainfluenza Virus 4 Not Detected (Not Detect); Respiratory Syncytial Virus Not Detected (Not Detect); SARS-CoV-2 Not Detected (Not Detect)
[2020-02-13 14:56] VITALS: BP 120/74
[2020-02-14] MEDS ORDERED: Vancomycin 1,500 MG/265 ML IV.SOLN IVPB SCH (01:00)
== END 2020-02-13 16:40 | DRG 233 ==
LOC: EMEROOARM 14:38 → 3BNU 14:38 → SUATTDRO 02-03 16:51 → ICNU 02-05 20:04 → 2NNU 02-10 16:31
PROVIDERS: ADMIT Internal Medicine; ATTEND Internal Medicine